=== PATIENT | female | born 1940 | race Caucasian/White ===

== ENCOUNTER 2018-09-23 08:27 | Outpatient (CLI) | payer MEDICARE, MEDICAID ==
[~2018-09-23] VITALS: Ht 154.9 cm; Wt 75.0 kg
[2018-09-23] VITALS (7 sets, daily range): BP systolic 136–160; BP diastolic 56–64
[2018-09-23] MEDS ORDERED: regadenoson 0.4mg/5ml syringe IV ONE ×2 (09:30→10:27)
[2018-09-23] MEDS ORDERED: nitroGLYCERIN 0.4mg SUBLingual tab SL PRN (09:35)
[2018-09-23] MEDS ORDERED: aminophylline 250mg/10ml inj. IV PRN (09:35)
[2018-09-23] MEDS ORDERED: ATOR20TA66 PO (09:55)
[2018-09-23] MEDS ORDERED: ESCI20TA38 PO (09:56)
[2018-09-23] MEDS ORDERED: SOTA80TA PO (09:56)
[2018-09-23] MEDS ORDERED: METF-436 PO (09:57)
[2018-09-23] MEDS ORDERED: INSU100V9 SQ (10:07)
[2018-09-23] MEDS ORDERED: BUSP5TAB3 PO (10:07)
[2018-09-23] MEDS ORDERED: OXYB5TAB11 PO (10:07)
[2018-09-23] MEDS ORDERED: OMEP20TA5 PO (10:09)
[2018-09-23] MEDS ORDERED: ASPI-611 PO (10:10)
[2018-09-23] MEDS ORDERED: DOCU100C41 PO (10:10)
[2018-09-23] MEDS ORDERED: CHOL100044 PO (10:10)
[2018-09-23] MEDS ORDERED: [UNRECOGNIZED DRUG - OTHER] PO (10:14)
[2018-09-23] MEDS ORDERED: CINN500C2 PO (10:15)
[2018-09-23] MEDS ORDERED: [UNRECOGNIZED DRUG - OTHER] PO (10:15)
[2018-09-23] MEDS ORDERED: [UNRECOGNIZED DRUG - CODE] PO (10:16)
[2018-09-23] MEDS ORDERED: AZO1OS OP (10:17)
[2018-09-23] MEDS ORDERED: BRIM5DRO OP (10:18)
[2018-09-23] MEDS ORDERED: XAL0.005OS OP (10:19)
[2018-09-23] MEDS ORDERED: aminophylline inj. 10 ML IV ONE (10:27)
== END 2018-09-23 23:59 | disposition home or self-care (01) ==
LOC: RAD 08:27
PROVIDERS: ATTEND Internal Medicine Cardiovascular Disease
DX: Z01.810 Encounter for preprocedural cardiovascular examination (principal); I25.10 Atherosclerotic heart disease of native coronary artery without angina pectoris; I10 Essential (primary) hypertension; E11.9 Type 2 diabetes mellitus without complications; Z79.82 Long term (current) use of aspirin; Z79.84 Long term (current) use of oral hypoglycemic drugs
CPT/HCPCS: 78452; 93017; A9500; J0280